=== PATIENT | male | born 1960 ===

== ENCOUNTER 2017-01-17 17:43 | Emergency (ER) | payer OTHER ==
--- NOTE | 2017-01-17 18:05 | UC ---
Throat Pain/Nasal Servando HPI - HPI Summary HPI Summary: 56 y/o male presents to the urgent care c/o sore throat on and off for the past 2 weeks. Pt also states nasal congestion with clear nasal discharge. He has taken OTC decongestants. Pain is 2/10 and associated dry cough and B/L ear pressure at times. Pt denies fever, SOB, chest pain, N/V/D, ear pain. - History of Current Complaint Chief Complaint: UCRespiratory Stated Complaint: SORE THROAT Time Seen by Provider: 01/17/17 18:01 Hx Obtained From: Patient Onset/Duration: Gradual Onset, Lasting Weeks - 2 weeks, Still Present, Worse Since - 2 days Severity: Mild Pain Intensity: 2 Pain Scale Used: 0-10 Numeric Cough: Nonproductive Associated Signs & Symptoms: Positive: Nasal Discharge - with clear nasal discharge. Negative: Fever - Epiglottits Risk Factors Epiglottis Risk Factors: Negative - Allergies/Home Medications Allergies/Adverse Reactions: Allergies Allergy/AdvReac Type Severity Reaction Status Date / Time No Known Allergies Allergy Verified 01/17/17 18:00 PMH/Surg Hx/FS Hx/Imm Hx Previously Healthy: Yes Endocrine History: Dyslipidemia - on diet control - Surgical History Surgical History: None - Family History Known Family History: Positive: None - Pt denies PMHX - Social History Occupation: Employed Full-time Lives: With Family Alcohol Use: Occasionally Substance Use Type: None Smoking Status (MU): Never Smoked Tobacco Review of Systems Constitutional: Negative Skin: Negative Eyes: Negative ENT: Sore Throat, Ear Ache - b/L ear pressure, Nasal Discharge - clear nasal discharge Respiratory: Cough - dry Cardiovascular: Negative Gastrointestinal: Negative Genitourinary: Negative Motor: Negative Neurovascular: Negative Musculoskeletal: Negative Neurological: Negative Psychological: Negative Is Patient Immunocompromised?: No All Other Systems Reviewed And Are Negative: Yes Physical Exam Triage Information Reviewed: Yes Vital Signs: Initial Vital Signs Temp 96.7 F 01/17/17 17:58 - Additional Comments VITAL SIGNS: Reviewed. GENERAL: Patient is a well developed and nourished male who is sitting comfortable in the examining table. Patient is not in any acute respiratory distress. HEAD AND FACE: No signs of trauma. No ecchymosis, hematomas or skull depressions. No sinus tenderness. EYES: PERRLA, EOMI x 2, No injected conjunctiva, no nystagmus. No photophobia. EARS: Hearing grossly intact. Ear canals with moderate cerumen un able to visualize TM's MOUTH: Positive pharynx with mild erythema, no exudates, mil palatal petechiae. No B/L tonsillar enlargement . Uvula in midline. NECK: Supple, trachea is midline, Positive anterior cervical lymphadenopathy, no JVD, no carotid bruit, no c-spine tenderness, neck with full ROM. No meningeal signs, no Kernig's or brudzinskis signs. CHEST: Symmetric, no tenderness at palpation LUNGS: Clear to auscultation bilaterally. No wheezing or crackles. CVS: Regular rate and rhythm, S1 and S2 present, no murmurs or gallops appreciated. ABDOMEN: Soft, non-tender. No signs of distention. No rebound no guarding, and no masses palpated. Bowel sounds are normal. EXTREMITIES: FROM in all major joints, no edema, no cyanosis or clubbing. NEURO: Alert and oriented x 3. No acute neurological deficits. Speech is normal and follows commands. SKIN: Dry and warm Throat Pain/Nasal Course/Dx - Course Course Of Treatment: 56 y/o male presents to the urgent care c/o sore throat on and off for the past 2 weeks. Pt also states nasal congestion with clear nasal discharge. He has taken OTC decongestants. Pain is 2/10 and associated dry cough and B/L ear pressure at times. Pt denies fever, SOB, chest pain, N/V/D, ear pain.Hx obtained. Pt with pharyngitis and B/L external ear with moderate cerumen on examiantion. Pt's BP is elevated today advised to decrease salt in diet, monitor BP and f/u with PCP for further management. Pt Rx ibuprofen PO and to alleviate symptoms of pain and swelling. Also Rx Debrox otic drops. Advised on hand washing to avoid spreading. Pt advised to rest, eat well and avoid strenuous exercise. If symptoms do not improve or worsen advised to return to the urgent care or f/u with her PCP for further evaluation and treatment. Pt understood and agreed with D/C instructions. - Differential Dx/Diagnosis Differential Diagnosis/HQI/PQRI: Influenza, Laryngitis, Mononucleosis, Otitis Media, Pharyngitis, Sinusitis, Tonsillitis, URI Provider Diagnoses: 1- Pharyngitis. 2-Bilaterally exteranal ear canals with cerumen impaction. 3- Elevated BP w/o Hx of HTN Discharge - Discharge Plan Condition: Stable Disposition: HOME Prescriptions: Carbamide Peroxide 6.5% OTIC* [DEBROX 6.5% Otic*] 5 drop BOTH EARS BID #1 bottle Fluticasone NASAL SPRAY 50MCG* [Flonase NASAL SPRAY 50MCG*] 2 spray BOTH NARES DAILY #1 btl Ibuprofen TAB* [Motrin TAB* 600 MG] 600 mg PO Q6H PRN #20 tab PRN Reason: Pain Patient Education Materials: Pharyngitis (ED), Cerumen Impaction (ED), Low Sodium Diet (ED) Referrals: [facility] [Outside] - 1 Week Additional Instructions: 1-Please take ibuprofen PO q6-8hrs prn as instructed after meals to alleviate pain and swelling. Increase fluid intake, eat well, rest and avoid strenuous exercise 2- Use the flonase nasal spray and use saline drops to clear your sinuses 3- Use the Debrox to soften cerumen in both external ear canals 4-If symptoms do not improve or worsen please return to the urgent care or f/u with your PCP for further evaluation and treatment. 5-Your BP is elevated today. please decrease salt in your diet, monitor BP and if it continues to be elevated please f/u with your PCP for further management
[2017-01-17 18:46] VITALS: BP 145/77
== END 2017-01-17 18:46 | disposition home or self-care (01) ==
LOC: UCEAST 17:43
DX: J02.9 Acute pharyngitis, unspecified (principal); H61.23 Impacted cerumen, bilateral; R09.81 Nasal congestion; R03.0 Elevated blood-pressure reading, without diagnosis of hypertension; E78.5 Hyperlipidemia, unspecified
CPT/HCPCS: 99202; G0463

== ENCOUNTER 2017-06-09 09:08 | Emergency (ER) | payer OTHER ==
[2017-06-09 09:24] VITALS: BP 122/54
--- NOTE | 2017-06-09 09:43 | UC ---
Eye Complaint HPI - HPI Summary HPI Summary: 56 Y/O male presents with C/O L eye irritation and purulent discharge x 2 days. States increased irritation and symptoms starting in R eye. Denies visual disturbance or injury. Medical history and medications reviewed at this visit. - History of Current Complaint Chief Complaint: UCEye Time Seen by Provider: 06/09/17 09:25 Hx Obtained From: Patient Onset/Duration: Gradual Onset Severity Initially: Mild Severity Currently: Mild Pain Intensity: 2 Pain Scale Used: 0-10 Numeric Aggravating Factor(s): Nothing Alleviating Factor(s): Nothing Associated Signs And Symptoms: Positive: Drainage (Purulent) - Risk Factors Penetrating Injury Risk Factor: Negative Globe Rupture Risk Factors: Negative Acute Glaucoma Risk Factors: Eye Inflammation Optic Artery Occlusion Risk Factors: Negative - Allergies/Home Medications Allergies/Adverse Reactions: Allergies Allergy/AdvReac Type Severity Reaction Status Date / Time No Known Allergies Allergy Verified 06/09/17 09:17 PMH/Surg Hx/FS Hx/Imm Hx Previously Healthy: Yes - Surgical History Surgical History: None - Family History Known Family History: Positive: None - Pt denies PMHX - Social History Alcohol Use: Daily Alcohol Amount: 1 glass wine daily Substance Use Type: None Smoking Status (MU): Never Smoked Tobacco Review of Systems Constitutional: Negative Skin: Negative Eyes: Drainage, Eye Redness ENT: Negative Respiratory: Negative Cardiovascular: Negative Gastrointestinal: Negative Genitourinary: Negative Motor: Negative Neurovascular: Negative Musculoskeletal: Negative Neurological: Negative Psychological: Negative Is Patient Immunocompromised?: No All Other Systems Reviewed And Are Negative: Yes Physical Exam - Summary Physical Exam Summary: Sclera red and irritated. small amount if purulent discharge L eye. Triage Information Reviewed: Yes Appearance: Well-Appearing Vital Signs: Initial Vital Signs Temp 97.2 F 06/09/17 09:18 Pulse 64 06/09/17 09:18 Resp 14 06/09/17 09:18 BP 122/54 06/09/17 09:18 Pulse Ox 100 06/09/17 09:18 Eyes: Positive: Discharge ENT Exam: Normal Eye Complaint Course/Dx - Differential Dx/Diagnosis Differential Diagnosis/HQI/PQRI: Conjunctivitis Provider Diagnoses: conjunctivitis Discharge - Sign-Out/Discharge Documenting (check all that apply): Discharge/Admit/Transfer - Discharge Plan Condition: Critical Disposition: HOME Patient Education Materials: Conjunctivitis (ED) Referrals: No Primary Care Phys,NOPCP [Primary Care Provider] - - Billing Disposition and Condition Condition: CRITICAL Disposition: HOME
== END 2017-06-09 09:55 | disposition home or self-care (01) ==
LOC: UCEAST 09:08
DX: H10.33 Unspecified acute conjunctivitis, bilateral (principal)
CPT/HCPCS: 99212; G0463

== ENCOUNTER 2017-08-23 13:54 | Emergency (ER) | payer OTHER ==
[2017-08-23 14:08] VITALS: BP 123/86
--- NOTE | 2017-08-23 14:42 | UC ---
Skin Complaint HPI - HPI Summary HPI Summary: This is tawnya Monroy documenting for attending Darcie James MD. This patient is a 56 year old M presenting to [facility] with a chief complaint of small, painful area of erythema below the right buttock that began yesterday night. The patient rates the pain 2/10 in severity. Symptoms aggravated by nothing. Symptoms alleviated by nothing. Patient denies drainage from the site. He reports that he is concerned about a possible insect bite although has not seen any insects. Patient reports he lives in an area where there are ticks, but denies recent tick removal. Not Guthrie compromise. Tetanus up-to-date. Patient's medications reviewed this visit. - History of Current Complaint Chief Complaint: UCSkin Time Seen by Provider: 08/23/17 14:34 Stated Complaint: BUG BITE Hx Obtained From: Patient Onset/Duration: Sudden Onset, Lasting Days, Still Present Skin Exposure Onset/Duration: Days Ago Timing: Constant Onset Severity: Mild Current Severity: Mild Pain Intensity: 2 Pain Scale Used: 0-10 Numeric Location: Other - Below right buttock Character: Redness, Painful Aggravating Factor(s): Nothing Alleviating Factor(s): Nothing - Allergy/Home Medications Allergies/Adverse Reactions: Allergies Allergy/AdvReac Type Severity Reaction Status Date / Time No Known Allergies Allergy Verified 08/23/17 14:08 Review of Systems Constitutional: Other - Negative fever Skin: Other - Positive area of redness below right buttock. Negative drainage from site All Other Systems Reviewed And Are Negative: Yes PMH/Surg Hx/FS Hx/Imm Hx Previously Healthy: Yes Endocrine History: Other Other Endocrine History: Negative diabetes Cardiovascular History: Other Other Cardiovascular History: negative hypertension - Surgical History Surgical History: None - Family History Known Family History: Negative: Cardiac Disease, Diabetes - Social History Occupation: Employed Full-time Lives: With Family Alcohol Use: Daily Alcohol Amount: 1 glass wine daily Substance Use Type: None Smoking Status (MU): Never Smoked Tobacco Physical Exam - Summary Physical Exam Summary: Vital Signs Reviewed: Yes A+Ox3, no distress Eyes: Conjunctiva Clear ENT: Hearing grossly normal neck: supple Respiratory: Positive: No respiratory distress, No accessory muscle use Cardiovascular: skin color reflect adequate perfusion Musculoskeletal Exam: SABA x 4 without difficulty Neurological: Positive: Alert, ambulatory without difficulty Psychological: Positive: Normal Response To Family Skin: Positive: right upper posterior thigh - pt with quarter size erythema with small, white, pointing follicle in center. No induration, no fluctuance Triage Information Reviewed: Yes Vital Signs: Initial Vital Signs Temp 97.0 F 08/23/17 14:05 Pulse 71 08/23/17 14:05 Resp 12 08/23/17 14:05 BP 123/86 08/23/17 14:05 Pulse Ox 98 08/23/17 14:05 Course/Dx - Course Course Of Treatment: Patient presents emergency Department with inflamed follicle with even express purulent discharge. Patient with mild discomfort. No bleeding. Patient without history of similar. Will place patient on short course of [place]. Culture taken and sent to lab for further sensitivity. Discussed with patient Motrin Tylenol, warm soaks, antibiotic complaints. Discussed with patient wound care signs and symptoms of infection as well as return precautions. Patient comfortable and in agreement with plan. No concern for tick bite at today's evaluation. - Diagnoses Provider Diagnoses: folliculitis Discharge - Sign-Out/Discharge Documenting (check all that apply): Post-Discharge Follow Up - Discharge Plan Condition: Stable Disposition: HOME Prescriptions: DOXYcycline CAP(*) [DOXYcycline 100MG CAP(*)] 100 mg PO BID #14 cap Patient Education Materials: Folliculitis (ED) Referrals: No Primary Care Phys,NOPCP [Primary Care Provider] - Additional Instructions: - Take antibiotics as prescribed until gone - Apply warm wet washcloths to the inflamed area 2 times a day for 15 minutes at a time - Okay to clean with warm soapy water. Pat dry. Cover with an antibiotic ointment such as Neosporin and Polysporin. Cover with Band-Aid - Monitor year wound for signs of worsening infection. Increased redness, red streaking, odor, increased pain, or fevers - The sample from the wound has been sent for additional testing. If you need a different antibiotic you will receive a call from her care crew team member. This may take 2-3 days - Contact your doctor or return questions or concerns - Billing Disposition and Condition Condition: STABLE Disposition: Home
== END 2017-08-23 15:00 | disposition home or self-care (01) ==
LOC: UCEAST 13:54
DX: L73.9 Follicular disorder, unspecified (principal)
CPT/HCPCS: 87070; 87077; 87205; 87640; 87641; 99212; G0463

== ENCOUNTER 2018-11-09 16:35 | Emergency (ER) | payer OTHER ==
[2018-11-09 16:45] VITALS: BP 130/80
--- NOTE | 2018-11-09 16:58 | UC ---
Ear Complaint HPI - HPI Summary HPI Summary: Healthy 58 yo with one week of progressive ear pain and pressure on the right side, without associated sore throat, headaches or URI symptoms. Hearing is not affected, no vertigo. - History of Current Complaint Chief Complaint: UCEar Stated Complaint: EARACHE Time Seen by Provider: 11/09/18 16:51 Hx Obtained From: Patient Onset/Duration: Gradual Onset, Lasting Days Pain Intensity: 2 Alleviating Factors: Nothing - no analgeics used. - Allergies/Home Medications Allergies/Adverse Reactions: Allergies Allergy/AdvReac Type Severity Reaction Status Date / Time No Known Allergies Allergy Verified 11/09/18 16:45 Home Medications: Home Medications NK [No Home Medications Reported] 11/09/18 [History Confirmed 11/09/18] PMH/Surg Hx/FS Hx/Imm Hx Previously Healthy: Yes Respiratory History: Other - Mild sleep apnea treated with a mandibular device. - Surgical History Surgical History: Yes Surgery Procedure, Year, and Place: vasectomy, hemorroidectomy - Family History Known Family History: Positive: Non-Contributory - Social History Occupation: Employed Full-time Lives: With Family Alcohol Use: None Alcohol Amount: 1 glass wine daily Substance Use Type: None Smoking Status (MU): Never Smoked Tobacco Review of Systems All Other Systems Reviewed And Are Negative: Yes Constitutional: Positive: Negative Skin: Positive: Negative Eyes: Positive: Negative ENT: Positive: Ear Ache, Other - gramajo been using a mandibular advance device for about 2 weeks to decrease snoring. Respiratory: Positive: Negative Cardiovascular: Positive: Negative Gastrointestinal: Positive: Negative Is Patient Immunocompromised?: No Physical Exam Triage Information Reviewed: Yes Appearance: Well-Appearing, Pain Distress - mild Vital Signs: Initial Vital Signs Temp 97 F 11/09/18 16:42 Pulse 71 11/09/18 16:42 Resp 16 11/09/18 16:42 BP 130/80 11/09/18 16:42 Pulse Ox 98 11/09/18 16:42 Eye Exam: Normal ENT: Positive: Pharynx normal, Other - bilateral obstructive cerumen Dental Exam: Normal Neck exam: Normal Neck: Positive: Supple, Nontender, No Lymphadenopathy Respiratory: Positive: Lungs clear, Normal breath sounds Cardiovascular: Positive: RRR, No Murmur Neurological Exam: Normal Psychological Exam: Normal Skin Exam: Normal Re-Evaluation - Re-Evaluation First Eval Re-Evaluation Time: 17:30 Change: Improved Comment: Canals cleared of cerumen. Mild serous fluid and erythema of the right TM, no acute OM and no evidence of canal infection. Ear Complaint Course/Dx - Course Course Of Treatment: Given overall normal TM, discussed possibility that origin of pain is from the TMJ and use of the mandibular advance device. - Differential Dx/Diagnosis Differential Diagnosis/HQI/PQRI: Otitis Externa, Otitis Media, TMJ Syndrome, Other Provider Diagnosis: Otalgia of right ear Discharge ED - Sign-Out/Discharge Documenting (check all that apply): Patient Departure All imaging exams completed and their final reports reviewed: No Studies - Discharge Plan Condition: Good Disposition: HOME Patient Education Materials: Earache (ED) Referrals: Delio Way MD [Primary Care Provider] - Additional Instructions: Ear wax was removed today, without evidence of acute infection. There is mild redness of the ear, but this is most likely the result of irrigation. It is possible that your jaw is the source of pain, resulting from use of the mandibular advance device. You might try several days without use, using ibuprofen 600mg up to 3 times daily for relief of discomfort. - Billing Disposition and Condition Condition: GOOD Disposition: Home
== END 2018-11-09 17:43 | disposition home or self-care (01) ==
LOC: UCEAST 16:35
DX: H92.01 Otalgia, right ear (principal)
CPT/HCPCS: 99213; G0463